=== PATIENT | female | born 1980 | race Hispanic/Latino ===

== ENCOUNTER 2018-07-22 12:05 | Emergency (ER) | payer MEDICARE, MEDICAID ==
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
== END 2018-07-22 13:13 | disposition home or self-care (01) ==
LOC: ERS 12:05
DX: S90.02XA Contusion of left ankle, initial encounter (principal); G80.9 Cerebral palsy, unspecified; V43.62XA Car passenger injured in collision with other type car in traffic accident, initial encounter